=== PATIENT | female | born 1960 | race Asian ===

== ENCOUNTER 2020-05-18 20:34 | Emergency (ER) | payer SELFPAY ==
[~2020-05-18] VITALS: Ht 160 cm; Wt 59.0 kg
[2020-05-18 20:42] VITALS: Ht 160 cm; Wt 59.0 kg
[2020-05-18 22:06] VITALS: BP 159/47
== END 2020-05-18 22:06 | disposition home or self-care (01) ==
LOC: ED 20:34
DX: S86.912A Strain of unspecified muscle(s) and tendon(s) at lower leg level, left leg, initial encounter (principal); W18.30XA Fall on same level, unspecified, initial encounter; Y93.89 Activity, other specified; Y92.89 Other specified places as the place of occurrence of the external cause; Y99.8 Other external cause status